=== PATIENT | male | born 1980 | race Caucasian/White ===

== ENCOUNTER 2016-05-31 08:49 | Emergency (ER) | payer BC ==
[2016-05-31] MEDS ORDERED: IBUPROFEN 800 MG TABLET PO ONE (10:27)
--- NOTE | 2016-05-31 10:28 | ER Document Report ---
HPI - HPI Patient complains to provider of: left foot pain Onset: Other - monday Onset/Duration: Persistent Quality of pain: Achy Severity: Severe Pain Level: 4 Context: Patient presents to the emergency department with complaints of left foot pain since Monday. Patient reports he was playing soccer when another player stepped on his foot. He reports swelling pain since that time. Denies past medical history fractured her ankle. Denies other symptoms such as fever vomiting diarrhea. Associated Symptoms: None Exacerbated by: Walking Relieved by: Denies Similar symptoms previously: No Recently seen / treated by doctor: No - ROS ROS below otherwise negative: Yes - DERM Skin Color: Ecchymosis Past Medical History - General Information source: Patient - Social History Smoking Status: Current Every Day Smoker Cigarette use (# per day): Yes - 1 ppd Chew tobacco use (# tins/day): Yes Frequency of alcohol use: None Drug Abuse: None Occupation: [employer] Family History: Reviewed & Not Pertinent Patient has suicidal ideation: No Patient has homicidal ideation: No - Past Medical History Cardiac Medical History: Denies: Hx Coronary Artery Disease, Hx Hypertension Pulmonary Medical History: Reports: Hx Asthma Endocrine Medical History: Denies: Hx Diabetes Mellitus Type 1, Hx Diabetes Mellitus Type 2 Renal/ Medical History: Denies: Hx Peritoneal Dialysis Surgical Hx: Negative - Immunizations Hx Diphtheria, Pertussis, Tetanus Vaccination: Yes Vertical Provider Document - CONSTITUTIONAL Agree With Documented VS: Yes Exam Limitations: No Limitations General Appearance: WD/WN, No Apparent Distress - INFECTION CONTROL TRAVEL OUTSIDE OF THE [place] IN LAST 30 DAYS: No - HEENT HEENT: Atraumatic, Normocephalic - NECK Neck: Normal Inspection, Supple - RESPIRATORY Respiratory: No Respiratory Distress O2 Sat by Pulse Oximetry: 96 - CARDIOVASCULAR Cardiovascular: Regular Rate - MUSCULOSKELETAL/EXTREMETIES Musculoskeletal/Extremeties: MAEW, FROM, Tender - Left wharf tender helper to palpation dorsally swelling noted. Pedal pulse good cap refill good, full range of motion - NEURO Level of Consciousness: Awake, Alert, Appropriate - DERM Integumentary: Warm, Dry Adult Front & Back Diagram: 1 - c/o pain, + swelling, no ecchymosis Course - Re-evaluation Re-evalutation: 05/31/16 10:30 Patient instructed on x-ray. Patient also instructed plan of care. He verbalized understanding to all instructions. - Vital Signs Vital signs: Temp Pulse Resp BP Pulse Ox 98.4 F 84 20 142/85 H 96 05/31/16 09:04 05/31/16 09:04 05/31/16 09:04 05/31/16 09:04 05/31/16 09:04 - Diagnostic Test Radiology reviewed: Image reviewed, Reports reviewed - IMPRESSION: Soft tissue injury Discharge - Discharge Clinical Impression: Left foot pain, Contusion, Elevated blood pressure reading Condition: Stable Disposition: HOME, SELF-CARE Instructions: Use of Crutches ([facility]), Selvin Wrap ([facility]), Ice & Elevation ([facility]), Use of Imsx-Fkf-Pnznrcc Ibuprofen ([facility]) Additional Instructions: *You have been evaluated for left foot pain and swelling, contusion *Maintain the selvin wrap for comfort, use the crutches for the next three day *Rest/Ice/Elevate *Follow up with orthopedics for continued pain-call for an appointment *Take ibuprofen as indicated *No soccer for one week- if it hurts to not play. *Follow up with her primary care provider for recheck within 1 week. *Monitor your blood pressure. Your blood pressure was elevated today. This may be because you were anxious, in pain or because you need medication. It is important to follow up with your primary care provider for full evaluation. *Return to ED for worsening condition, changes, needs Forms: Elevated Blood Pressure, Return to Work
[2016-05-31 10:52] VITALS: BP 122/60
== END 2016-05-31 10:52 | disposition home or self-care (01) ==
LOC: ER 08:49
DX: S90.32XA Contusion of left foot, initial encounter (principal); M79.672 Pain in left foot; W50.0XXA Accidental hit or strike by another person, initial encounter; Y93.66 Activity, soccer; R03.0 Elevated blood-pressure reading, without diagnosis of hypertension; F17.210 Nicotine dependence, cigarettes, uncomplicated; J45.909 Unspecified asthma, uncomplicated
CPT/HCPCS: 99283

== ENCOUNTER 2017-06-28 11:20 | Emergency (ER) | payer SELFPAY ==
[2017-06-28] MEDS ORDERED: KETOROLAC TROMETHAMINE INJ/PF 30 MG/1 ML SDV IV ONE (12:04)
[2017-06-28 13:27] LABS: ABSOLUTE EOSINOPHILS # (AUTO) 0.1 10^3/uL (0.0-0.6); ABSOLUTE LYMPHOCYTES (AUTO) 1.6 10^3/uL (0.5-4.7); ABSOLUTE MONOCYTES (AUTO) 0.6 10^3/uL (0.1-1.4); ABSOLUTE NEUT (AUTO) 5.3 10^3/uL (1.7-8.2); BASOPHILS % (AUTO) 0.3 % (0-2); EOSINOPHILS % (AUTO) 1.7 % (0-6); HEMATOCRIT 48.7 % (37.9-51.0); HEMOGLOBIN 16.8 g/dL (13.5-17.0); LYMPHOCYTES % (AUTO) 20.7 % (13-45); MEAN CORPUSCULAR HEMOGLOBIN 30.9 pg (27.0-33.4); MEAN CORPUSCULAR HGB CONC 34.5 g/dL (32.0-36.0); MEAN CORPUSCULAR VOLUME 90 fl (80-97); MONOCYTES % (AUTO) 7.8 % (3-13); PLATELET COUNT 269 10^3/uL (150-450); RED BLOOD COUNT 5.44 10^6/uL (4.35-5.55); RED CELL DISTRIBUTION WIDTH 13.4 % (11.5-14.0); SEGMENTED NEUTROPHILS % (AUTO) 69.5 % (42-78); TOTAL CELLS COUNTED % (AUTO) 100 %; WHITE BLOOD COUNT 7.6 10^3/uL (4.0-10.5)
--- NOTE | 2017-06-28 13:28 | RADIOLOGY REPORT (SQ) ---
EXAM DESCRIPTION: CT ABD/PELVIS WITH IV ONLY COMPLETED DATE/TIME: 06/28/2017 1:15 pm REASON FOR STUDY: lower abd pain COMPARISON: None. TECHNIQUE: CT scan of the abdomen and pelvis performed using helical scanning technique with dynamic intravenous contrast injection. No oral contrast. Images reviewed with lung, soft tissue, and bone windows. Reconstructed coronal and sagittal MPR images reviewed. Delayed images for evaluation of the urinary system also acquired. All images stored on PACS. All CT scanners at this facility use dose modulation, iterative reconstruction, and/or weight based d osing when appropriate to reduce radiation dose to as low as reasonably achievable (ALARA). [facility]: Dose Right [facility]: CareDose [facility]: Dose Right [facility]: Teradose 4D [facility]: [employer] CONTRAST TYPE AND DOSE: contrast/concentration: Isovue 370.00 mg/ml; Total Contrast Delivered: 96.0 ml; Total Saline Delivered: 62.0 ml RENAL FUNCTION: None required. The patient is less than 50 years old. RADIATION DOSE: CT Rad equipment meets quality standard of care and radiation dose reduction techniq ues were employed. CTDIvol: NaN - NaN mGy. DLP: 0 mGy-cm.. LIMITATIONS: None. FINDINGS: LOWER CHEST: No significant findings. No nodules or infiltrates. LIVER: Normal size. No masses. No dilated ducts. SPLEEN: Normal size. No focal lesions. PANCREAS: No masses. No significant calcifications. No adjacent inflammation or peripancreatic fluid collections. Pancreatic duct not dilated. GALLBLADDER: No identified stones by CT criteria. No inflammatory changes to suggest cholecystitis. ADRENAL GLANDS: No significant masses or asymmetry. RIGHT KIDNEY AND URETER: No solid masses. No significant calcifications. No hydronephrosis or hyd roureter. LEFT KIDNEY AND URETER: No solid masses. No significant calcifications. No hydronephrosis or hydr oureter. AORTA AND VESSELS: No aneurysm. No dissection. Renal arteries, SMA, celiac without stenosis. RETROPERITONEUM: No retroperitoneal adenopathy, hemorrhage or masses. BOWEL AND PERITONEAL CAVITY: No masses or inflammatory changes. No free fluid or peritoneal masses. APPENDIX: Normal. PELVIS: No mass. No free fluid. Normal bladder. ABDOMINAL WALL: No masses. No hernias. BONES: No significant or acute findings. OTHER: No other significant finding. IMPRESSION: NO SIGNIFICANT OR ACUTE FINDING IN THE ABDOMEN OR PELVIS ON CT SCAN WITH IV CONTRAST. TECHNICAL DOCUMENTATION: JOB ID: [id number] Quality ID # [id number]: Final reports with documentation of one or more dose reduction techniques (e.g., Au tomated exposure control, adjustment of the mA and/or kV according to patient size, use of iterative reconstruction technique) 2010 [employer]- All Rights Reserved Reading location - IP/workstation name: [email or web address]
[2017-06-28 13:32] LABS: APPEARANCE,URINE CLEAR; BILIRUBIN,URINE NEGATIVE (NEGATIVE); COLOR,URINE YELLOW; GLUCOSE, URINE NEGATIVE (NEGATIVE); KETONES,URINE TRACE mg/dL (NEGATIVE); LEUKOCYTE ESTERASE,URINE NEGATIVE (NEGATIVE); NITRITE,URINE NEGATIVE (NEGATIVE); PROTEIN,URINE NEGATIVE (NEGATIVE); URINE SPECIFIC GRAVITY 1.009; UROBILINOGEN,URINE NEGATIVE mg/dL (<2.0)
[2017-06-28 13:48] LABS: ALANINE AMINOTRANSFERASE 69 U/L (21-72); ALBUMIN 4.9 g/dL (3.5-5.0); ALKALINE PHOSPHATASE 53 U/L (38-126); ANION GAP 11 (5-19); ASPARTATE AMINO TRANSFERASE 53 U/L (17-59); BILIRUBIN,DIRECT 0.4 mg/dL (0.0-0.4); BILIRUBIN,TOTAL 0.5 mg/dL (0.2-1.3); BLOOD UREA NITROGEN 18 mg/dL (7-20); CALCIUM 9.9 mg/dL (8.4-10.2); CARBON DIOXIDE 28 mmol/L (22-30); CHLORIDE 100 mmol/L (98-107); GLUCOSE 68 mg/dL (75-110); POTASSIUM 4.3 mmol/L (3.6-5.0); TOTAL PROTEIN 7.5 g/dL (6.3-8.2)
--- NOTE | 2017-06-28 14:08 | ER Document Report ---
ED General - General Chief Complaint: Lower Abdominal Pain Stated Complaint: LOW ABDOMINAL PAIN Time Seen by Provider: 06/28/17 12:03 Mode of Arrival: Ambulatory Information source: Patient Notes: Patient states that he has lower abdominal pain mainly on the left. He states it is worse with movement or any type of strenuous exercise. Is better with rest. It does not radiate. He states he does feel some pain radiate down by his testicles. No problems with stool. No problems with urination. No vomiting. He has had a normal appetite. No fevers or rashes. He has not noticed any swelling or masses. TRAVEL OUTSIDE OF THE [place] IN LAST 30 DAYS: No - Related Data Allergies/Adverse Reactions: Penicillins Allergy (Unknown, Verified 06/28/17 11:22) Eggs Allergy (Unknown, Uncoded 06/28/17 11:22) Past Medical History - General Information source: Patient - Social History Smoking Status: Former Smoker Chew tobacco use (# tins/day): No Frequency of alcohol use: Occasional Drug Abuse: None Family History: Reviewed & Not Pertinent Patient has suicidal ideation: No Patient has homicidal ideation: No - Past Medical History Cardiac Medical History: Denies: Hx Coronary Artery Disease, Hx Hypertension Pulmonary Medical History: Reports: Hx Asthma Endocrine Medical History: Denies: Hx Diabetes Mellitus Type 1, Hx Diabetes Mellitus Type 2 Renal/ Medical History: Denies: Hx Peritoneal Dialysis - Immunizations Hx Diphtheria, Pertussis, Tetanus Vaccination: Yes Review of Systems - Review of Systems Constitutional: denies: Chills, Fever Cardiovascular: denies: Chest pain, Palpitations Respiratory: denies: Cough, Short of breath -: Yes All other systems reviewed and negative Physical Exam - Vital signs Vitals: Temp Pulse Resp BP Pulse Ox 97.7 F 84 16 129/79 H 97 06/28/17 11:31 06/28/17 11:31 06/28/17 11:31 06/28/17 11:31 06/28/17 11:31 Interpretation: Normal - General General appearance: Appears well, Alert - HEENT Head: Normocephalic, Atraumatic Eyes: Normal Pupils: PERRL - Respiratory Respiratory status: No respiratory distress Chest status: Nontender Breath sounds: Normal Chest palpation: Normal - Cardiovascular Rhythm: Regular Heart sounds: Normal auscultation Murmur: No - Abdominal Inspection: Normal Distension: No distension Bowel sounds: Normal Tenderness: Tender - Mild bilateral lower quadrant tenderness to palpation. No inguinal masses or tenderness. Organomegaly: No organomegaly - Genitourinary Inspection: Normal Tenderness: Nontender Scrotum: Normal - Back Back: Normal, Nontender - Extremities General upper extremity: Normal inspection, Nontender, Normal color, Normal ROM , Normal temperature General lower extremity: Normal inspection, Nontender, Normal color, Normal ROM , Normal temperature, Normal weight bearing. No: Brayden's sign - Neurological Neuro grossly intact: Yes Cognition: Normal Orientation: AAOx4 [place] Coma Scale Eye Opening: Spontaneous [place] Coma Scale Verbal: Oriented Jan Coma Scale Motor: Obeys Commands [place] Coma Scale Total: 15 Speech: Normal Motor strength normal: LUE, RUE, LLE, RLE Sensory: Normal - Psychological Associated symptoms: Normal affect, Normal mood - Skin Skin Temperature: Warm Skin Moisture: Dry Skin Color: Normal Course - Vital Signs Vital signs: Temp Pulse Resp BP Pulse Ox 97.7 F 84 16 129/79 H 97 06/28/17 11:31 06/28/17 11:31 06/28/17 11:31 06/28/17 11:31 06/28/17 11:31 - Laboratory Result Diagrams: 06/28/17 12:45 06/28/17 12:45 Laboratory results interpreted by me: 06/28/17 06/28/17 12:35 12:45 Glucose 68 L Urine Ketones TRACE H Urine Ascorbic Acid 40 H - Diagnostic Test Radiology reviewed: Image reviewed, Reports reviewed - CT shows no evidence of acute pathology Discharge - Discharge Clinical Impression: Strain of abdominal muscle Qualifiers: Encounter type: initial encounter Qualified Code(s): S39.011A - Strain of muscle, fascia and tendon of abdomen, initial encounter Condition: Stable Disposition: HOME, SELF-CARE Instructions: Muscle Strain ([facility]) Prescriptions: Hydrocodone/Acetaminophen [[place] 5-325 Tablet] 1 - 2 tab PO Q6 4 Days #15 tab Forms: Return to Work
[2017-06-28 14:19] VITALS: BP 109/58
== END 2017-06-28 14:22 | disposition home or self-care (01) ==
LOC: ER 11:20
DX: S39.011A Strain of muscle, fascia and tendon of abdomen, initial encounter (principal); R10.30 Lower abdominal pain, unspecified; N50.812 Left testicular pain; N50.811 Right testicular pain; Z87.891 Personal history of nicotine dependence; X58.XXXA Exposure to other specified factors, initial encounter
CPT/HCPCS: 99284; 96374; 36415; 85025; 80053; 81001; 74177; J1885

== ENCOUNTER 2018-02-24 22:58 | Emergency (ER) | payer SELFPAY ==
[2018-02-24 23:18] VITALS: BP 134/84
--- NOTE | 2018-02-24 23:47 | ER Document Report ---
ED General - General Chief Complaint: Finger Injury Stated Complaint: FINGER INJURY Time Seen by Provider: 02/24/18 23:30 Notes: Patient is a pleasant 29-year-old male presents with complaints of a subungual hematoma in the middle finger of the left hand. Patient says on Monday he accidentally closed a window on it and it has been swollen ever since. This injury occurred 6 days ago being that is now Monday night. He tried to poke a hole and no himself using a hot needle. Says small amount of blood did come out at that time. He says he did have a little swelling going into the paronychia region around the fingernail itself. Says it is throbbing and he feels there is a lot of pressure underneath the nail therefore is come to the ER. No other injuries. TRAVEL OUTSIDE OF THE [place] IN LAST 30 DAYS: No - Related Data Allergies/Adverse Reactions: Penicillins Allergy (Unknown, Verified 02/25/18 00:10) Eggs Allergy (Unknown, Uncoded 02/25/18 00:10) Past Medical History - Social History Smoking Status: Current Every Day Smoker Frequency of alcohol use: Occasional Drug Abuse: None Family History: Reviewed & Not Pertinent - Past Medical History Cardiac Medical History: Denies: Hx Coronary Artery Disease, Hx Hypertension Pulmonary Medical History: Reports: Hx Asthma Endocrine Medical History: Denies: Hx Diabetes Mellitus Type 1, Hx Diabetes Mellitus Type 2 Renal/ Medical History: Denies: Hx Peritoneal Dialysis - Immunizations Hx Diphtheria, Pertussis, Tetanus Vaccination: Yes Review of Systems - Review of Systems Notes: My Normal Review Basic REVIEW OF SYSTEMS: CONSTITUTIONAL : Denies fever, chills, or sweats. Denies recent illness. MUSCULOSKELETAL: Subungal hematoma NEUROLOGICAL: Denies sensory or motor loss. ALL OTHER SYSTEMS REVIEWED AND NEGATIVE. Physical Exam - Vital signs Vitals: Temp Pulse Resp BP Pulse Ox 98.0 F 67 16 134/84 H 98 02/24/18 23:14 02/24/18 23:14 02/24/18 23:14 02/24/18 23:14 02/24/18 23:14 - Notes Notes: General Appearance: Well nourished, alert, cooperative, no acute distress, mild obvious discomfort. Vitals: reviewed, See vital signs table. Extremities: Patient has obvious subungual hematoma of the nail of the left middle finger. Some swelling into the paronychia region. There is no significant redness. No signs of infection. No obvious deformity to the finger except for the swelling is located just proximal to the nail itself. Neuro: speech clear, oriented x 3, normal affect, responds appropriately to questions. Course - Re-evaluation Re-evalutation: 02/25/18 05:14 A hole was made in the fingernail using cautery pen. Blood was expressed from underneath the nail and all the swelling that went into the paronychial region was pushed out in the swollen area was completely flattened by drainage of the blood from the home and the nail. Patient is able move the finger without difficulty. I talked her length about the possibility of there being underlying fractured finger. I said given that there is no obvious deformity that he could still have a crack in the bone. Informed treatment would be michaela taping. I did offer an x-ray but said treatment of a fracture would be to michaela tape the finger. Patient says he rather not have the x-ray and just splint the finger himself. I think this is appropriate. At this time I do not think nail removal to look for underlying nailbed injury is appropriate being that the injury occurred 6 days ago and any laceration to the nailbed itself with artery almost completely healed. I informed the patient that it is likely that he may lose the fingernail. If this is a fingernail there is a chance that a new nail will not grow or will grow. Understanding of this. Patient encouraged to return to ER immediately if he has redness or swelling to the finger, increasing pain, or any further concerns. Patient agrees with plan will be discharged home. Dictation of this chart was performed using voice recognition software; therefore, there may be some unintended grammatical errors. - Vital Signs Vital signs: Temp Pulse Resp BP Pulse Ox 98.0 F 67 16 134/84 H 98 02/24/18 23:14 02/24/18 23:14 02/24/18 23:14 02/24/18 23:14 02/24/18 23:14 Discharge - Discharge Clinical Impression: Subungual hematoma of finger Qualifiers: Encounter type: initial encounter Qualified Code(s): S60.10XA - Contusion of unspecified finger with damage to nail, initial encounter Condition: Good Disposition: HOME, SELF-CARE Additional Instructions: Without an x-ray it is unclear as to whether or not you have an underlying fracture. There is still likelihood you could have an underlying fracture; therefore, you should still keep your finger michaela taped and protect it during any activities that could cause trauma to your finger. You may loose the nail. Most the time the finger nail will grow back, but sometimes it will not. Please have a low threshold to return to the ER if you have any redness, swelling, or signs of infection.
== END 2018-02-25 | disposition home or self-care (01) ==
LOC: ER 22:58
DX: S60.10XA Contusion of unspecified finger with damage to nail, initial encounter (principal); W23.1XXA Caught, crushed, jammed, or pinched between stationary objects, initial encounter; F17.200 Nicotine dependence, unspecified, uncomplicated; Z88.0 Allergy status to penicillin; Z91.012 Allergy to eggs
CPT/HCPCS: 99283

== ENCOUNTER 2018-02-26 01:27 | Emergency (ER) | payer SELFPAY ==
[2018-02-26] MEDS ORDERED: BUPIVACAINE HCL 0.5 % INJ/PF 30 ML SDV INJ ONE (01:33)
[2018-02-26] MEDS ORDERED: LIDOCAINE 2% INJ (20 MG/ML) 20 ML MDV INJ ONE (01:34)
--- NOTE | 2018-02-26 02:27 | ER Document Report ---
ED General - General Chief Complaint: Finger Injury Stated Complaint: LEFT MIDDLE FINGER INJURY Time Seen by Provider: 02/26/18 01:35 Notes: Patient is a pleasant 37-year-old male who accidentally shut a window in his left middle finger 7 days ago. He came in yesterday and was seen by me. He has a subungual hematoma with swelling into the cuticle. I trephinated the nail and this allowed resolution of the swelling and the subungual hematoma. Patient says later in the day the blood clotted and would no longer drain to trephination therefore the swelling returned. No new injuries. No spreading redness. No fevers. No other complaints at this time. TRAVEL OUTSIDE OF THE [place] IN LAST 30 DAYS: No - Related Data Allergies/Adverse Reactions: Penicillins Allergy (Unknown, Verified 02/25/18 00:10) Eggs Allergy (Unknown, Uncoded 02/25/18 00:10) Past Medical History - Social History Smoking Status: Unknown if Ever Smoked Frequency of alcohol use: None Drug Abuse: None Family History: Reviewed & Not Pertinent Patient has suicidal ideation: No Patient has homicidal ideation: No - Past Medical History Cardiac Medical History: Denies: Hx Coronary Artery Disease, Hx Hypertension Pulmonary Medical History: Reports: Hx Asthma Endocrine Medical History: Denies: Hx Diabetes Mellitus Type 1, Hx Diabetes Mellitus Type 2 Renal/ Medical History: Denies: Hx Peritoneal Dialysis - Immunizations Hx Diphtheria, Pertussis, Tetanus Vaccination: Yes Review of Systems - Review of Systems Notes: My Normal Review Basic REVIEW OF SYSTEMS: CONSTITUTIONAL : Denies fever, chills, or sweats. Denies recent illness. MUSCULOSKELETAL: Subungual hematoma of left middle finger. NEUROLOGICAL: Denies sensory or motor loss. ALL OTHER SYSTEMS REVIEWED AND NEGATIVE. Physical Exam - Vital signs Vitals: Temp Pulse Resp BP Pulse Ox 97.4 F 68 15 133/82 H 99 02/26/18 01:30 02/26/18 01:30 02/26/18 01:30 02/26/18 01:30 02/26/18 01:30 - Notes Notes: General Appearance: Well nourished, alert, cooperative, no acute distress, no obvious discomfort. Well-appearing. Vitals: reviewed, See vital signs table. Extremities: Patient has some ongoing hematoma of the left fingernail with swelling to the cuticle region. Neuro: speech clear, oriented x 3, normal affect, responds appropriately to questions. Course - Re-evaluation Re-evalutation: 02/26/18 06:29 I performed a digital block in the patient's left middle finger. This gave good anesthesia. I then removed the nail. I washed off the nailbed. The nail matrix and the cuticle area appears significant disrupted and damaged due to the subungual hematoma that he had for the last week. Informed patient that there is a chance that he may not be able to regrow a normal fingernail however in order to increase his chances to regain a normal nail I replaced the nail back into the nail bed as a splint and put underneath the cuticle to help give support to the cuticle so it could heal appropriately and hopefully grow a new nail. I will reevaluate the patient in 1 week to see if he is having improvement and if so at that time will consider cutting the stitches and removing the old nail to allow new nail to grow in. Patient encouraged to return to ER immediately if he has any redness or swelling to the finger or any signs of infection. Patient agrees with plan and will be discharged home. Dictation of this chart was performed using voice recognition software; therefore, there may be some unintended grammatical errors. Dictation of this chart was performed using voice recognition software; therefore, there may be some unintended grammatical errors. - Vital Signs Vital signs: Temp Pulse Resp BP Pulse Ox 98.5 F 69 18 129/74 H 99 02/26/18 02:47 02/26/18 02:47 02/26/18 02:47 02/26/18 02:47 02/26/18 02:47 Discharge - Discharge Clinical Impression: Subungual hematoma of finger Qualifiers: Encounter type: subsequent encounter Qualified Code(s): S60.10XD - Contusion of unspecified finger with damage to nail, subsequent encounter Asthma Qualifiers: Asthma severity: unspecified severity Asthma persistence: intermittent Asthma complication type: uncomplicated Qualified Code(s): J45.20 - Mild intermittent asthma, uncomplicated Condition: Good Disposition: HOME, SELF-CARE Additional Instructions: Please follow up with a doctor in one week for reevaluation of the finger and removal of the stitches at that time if it appears finger is healing appropriately. please return to the ER immediately or contact me if you have any spreading redness in the finger, increasing swelling, or feel that it is worsening in any way. Stop smoking. Return to the ER if you have wheezing not responding to your inhaler. Prescriptions: Albuterol Sulfate [Proair HFA Inhalation Aerosol 8.5 gm MDI] 2 puff IH Q4H PRN # 1 mdi PRN Reason:
[2018-02-26 02:48] VITALS: BP 129/74
== END 2018-02-26 02:48 | disposition home or self-care (01) ==
LOC: ER 01:27
PROC: 3E0T3BZ Introduction of Anesthetic Agent into Peripheral Nerves and Plexi, Percutaneous Approach (ICD-10-PCS; principal; 2018-02-26)
DX: S60.1 Contusion of finger with damage to nail (principal); J45.20 Mild intermittent asthma, uncomplicated; X58.XXXA Exposure to other specified factors, initial encounter
CPT/HCPCS: 99282; 64455; J3490 ×2

== ENCOUNTER 2018-07-14 07:09 | Emergency (ER) | payer SELFPAY ==
[2018-07-14] MEDS ORDERED: ONDANSETRON 4 MG TAB.RAPDIS PO ONE (08:15)
[2018-07-14] MEDS ORDERED: OXYCODONE-ACETAMINOPHEN 5-325 MG TABLET PO ONE (08:15)
--- NOTE | 2018-07-14 09:12 | RADIOLOGY REPORT (SQ) ---
EXAM DESCRIPTION: RIBS RIGHT W/PA CHEST COMPLETED DATE/TIME: 07/14/2018 8:29 am REASON FOR STUDY: injury, pain COMPARISON: Two-view chest 02/23/2012 TECHNIQUE: Frontal view of the chest and additional views of the right ribs acquired. NUMBER OF VIEWS: PA chest, right rib detail two views LIMITATIONS: None. FINDINGS: FRONTAL CXR: No pneumothorax. No pleural effusion. No atelectasis or infiltrates. RIBS: No displaced rib fractures. No lytic or blastic bony lesions. OTHER: No other significant finding. IMPRESSION: NO PNEUMOTHORAX. NO DISPLACED RIB FRACTURES. COMMENT: SITE OF TRAUMA/COMPLAINT MARKED/STAMP COMPLETED: No TECHNICAL DOCUMENTATION: JOB ID: [id number] [employer]- All Rights Reserved Reading location - IP/workstation name: [email or web address]
--- NOTE | 2018-07-14 11:07 | ER Document Report ---
ED General - General Chief Complaint: Rib Pain Stated Complaint: FLANK PAIN Time Seen by Provider: 07/14/18 07:37 TRAVEL OUTSIDE OF THE [place] IN LAST 30 DAYS: No - HPI Notes: Patient is a 37-year-old male presents emergency department for evaluation of right rib pain. He sustained an injury during [employer] class yesterday. He denies any shortness of breath but states his pain is worse with a deep breaths. Is also worse with crunching forward. He denies hitting his head or losing consciousness. No neck or back pain. - Related Data Allergies/Adverse Reactions: Penicillins Allergy (Unknown, Verified 07/14/18 07:17) Eggs Allergy (Unknown, Uncoded 07/14/18 07:17) Past Medical History - General Information source: Patient - Social History Smoking Status: Current Every Day Smoker Frequency of alcohol use: Rare Drug Abuse: None Family History: Reviewed & Not Pertinent Patient has suicidal ideation: No Patient has homicidal ideation: No - Past Medical History Cardiac Medical History: Denies: Hx Coronary Artery Disease, Hx Hypertension Pulmonary Medical History: Reports: Hx Asthma Endocrine Medical History: Denies: Hx Diabetes Mellitus Type 1, Hx Diabetes Mellitus Type 2 Renal/ Medical History: Denies: Hx Peritoneal Dialysis - Immunizations Hx Diphtheria, Pertussis, Tetanus Vaccination: Yes Review of Systems - Review of Systems EENT: No symptoms reported Cardiovascular: See HPI Gastrointestinal: No symptoms reported Genitourinary: No symptoms reported Musculoskeletal: See HPI Skin: No symptoms reported Neurological/Psychological: No symptoms reported Physical Exam - Vital signs Vitals: Temp Pulse Resp BP Pulse Ox 97.4 F 72 16 149/72 H 97 07/14/18 07:29 07/14/18 07:29 07/14/18 07:29 07/14/18 07:29 07/14/18 07:29 - Notes Notes: Vital signs reviewed, please refer to chart. Patient is normocephalic, atraumatic. Pupils equal round, reactive to light. Neck is supple without meningismus. Heart is regular rate and rhythm. Lungs are clear to auscultation bilaterally. No obvious deformity of the chest wall. He is tender to palpation over the right anterolateral and inferior ribs. Chest wall excursion is equal bilaterally. Abdomen is soft, nontender, normoactive bowel sounds throughout. Extremities without cyanosis, clubbing, edema. Peripheral pulses are equal. Skin is warm and dry. Patient is awake, alert, neurological exam is nonfocal. Course - Re-evaluation Re-evalutation: 07/14/18 12:53 Patient presents emergency department for evaluation. His findings are consistent with significant chest wall contusion. Radiology was reviewed and failed to reveal any significant or displaced rib fractures. No underlying lung injury. He remained vitally stable. He was treated here with pain medication and feeling improved. We did discuss at length pulmonary toilet and the need to take deep breaths. Is strongly encouraged to quit smoking. The importance of taking deep breaths was stressed. He states he is able to do that from certain positions without pain. He was strongly encouraged to do so. Sent home with pain medication and anti-inflammatories, he is to return to the ED with worsening or new concerning symptoms of any sort. - Vital Signs Vital signs: Temp Pulse Resp BP Pulse Ox 97.5 F 69 18 132/86 H 100 07/14/18 11:19 07/14/18 11:19 07/14/18 11:19 07/14/18 11:19 07/14/18 11:19 Discharge - Discharge Clinical Impression: Contusion of rib on right side Condition: Stable Disposition: HOME, SELF-CARE Instructions: Rib Injuries and Fractures ([facility]) Additional Instructions: Be sure to take deep breaths as discussed. Take medications as prescribed, with food. Watch for constipation with the pain medication. Follow-up with your doctor next week. Return to the emergency department with worsening or new concerning symptoms. Prescriptions: Naproxen [Naprosyn 375 Mg Tablet] 375 mg PO BID #20 tablet Oxycodone HCl/Acetaminophen [Percocet 5-325 mg Tablet] 1 - 2 tab PO Q4H PRN #15 tablet PRN Reason: Forms: Smoking Cessation Education
[2018-07-14 11:21] VITALS: BP 132/86
== END 2018-07-14 11:21 | disposition home or self-care (01) ==
LOC: ER 07:09
DX: S20.211A Contusion of right front wall of thorax, initial encounter (principal); X58.XXXA Exposure to other specified factors, initial encounter; Y93.75 Activity, martial arts; F17.200 Nicotine dependence, unspecified, uncomplicated; Z88.0 Allergy status to penicillin; Z91.012 Allergy to eggs
CPT/HCPCS: 99283; 71101; S0119